=== PATIENT | male | born 1995 | race Caucasian/White ===

== ENCOUNTER 2017-01-28 17:58 | Emergency (ER) | payer MEDICAID, OTHER ==
[2017-01-28 18:14] VITALS: BP 117/50; PULSE 63; RESP 20; TEMP 98.3; O2SAT 100
[2017-01-28] MEDS ORDERED: Lidocaine 5% Patch TD STA (18:34)
[2017-01-28] MEDS ORDERED: Lidocaine 5% Patch TD ONE (18:43)
--- NOTE | 2017-01-28 18:57 | C.PDOC ---
History Of Present Illness 21 year old male presents to the ED with complaints of intermittent dull achy left lower back pain for four months. Patient states pain began when heavy lifting at work but has since moved to a different position but pain is still intermittent. He has taken Tylenol and Advil with transient relief. Patient denies fever, urinary symptoms, urinary incontinence, numbness, or weakness. Time Seen by Provider: 01/28/17 18:22 Chief Complaint (Nursing): Back Pain History Per: Patient History/Exam Limitations: no limitations Onset/Duration Of Symptoms: Persistent (four months ) Current Symptoms Are (Timing): Still Present Quality Of Discomfort: "Pain" Previous Symptoms: None Associated Symptoms: None Recent travel outside of the [place]: No Past Medical History Reviewed: Historical Data, Nursing Documentation, Vital Signs Vital Signs: Last Vital Signs Temp 98.3 F 01/28/17 18:11 Pulse 63 01/28/17 18:11 Resp 20 01/28/17 18:11 BP 117/50 L 01/28/17 18:11 Pulse Ox 100 01/28/17 21:17 Family History: States: Unknown Family Hx - Social History Hx Tobacco Use: No Hx Alcohol Use: No Hx Substance Use: No - Immunization History Hx Tetanus Toxoid Vaccination: Yes Hx Influenza Vaccination: Yes Hx Pneumococcal Vaccination: No Review Of Systems Constitutional: Negative for: Fever, Chills Cardiovascular: Negative for: Chest Pain Respiratory: Negative for: Shortness of Breath Gastrointestinal: Negative for: Nausea, Vomiting Musculoskeletal: Positive for: Back Pain Neurological: Negative for: Weakness, Numbness Physical Exam - Physical Exam Appears: Non-toxic, No Acute Distress Skin: Warm, Dry Head: Atraumatic, Normacephalic Eye(s): bilateral: Normal Inspection, PERRL, EOMI Oral Mucosa: Moist Neck: Supple Chest: Symmetrical, No Deformity Cardiovascular: Rhythm Regular Respiratory: Normal Breath Sounds, No Rales, No Rhonchi, No Wheezing Back: Muscle Spasm (left lumbosacral muscle spasms), Other (left lumbosacral tenderness ) Extremity: Normal ROM, No Tenderness, Capillary Refill (good capillary refill, less than two seconds. ) Gait: Steady ED Course And Treatment O2 Sat by Pulse Oximetry: 100 (room air ) Progress Note: Patient was given Motrin, Flexeril, and Lidoderm patch Reassessment Condition: Improved (Patient resting comfortably, no longer having back pain, no fever, no bony tenderness, no numbness, no weakness, no abdominal pain. Patient is ambulatory in the emergency department with no discomfort. Patient advised to follow up with their physician in 1-2 days.) Disposition Counseled Patient/Family Regarding: Diagnosis, Need For Followup, Rx Given - Disposition Referrals: Sangita Marroquin MD [Medical Doctor] - Disposition: HOME/ ROUTINE Disposition Time: 18:56 Condition: STABLE Additional Instructions: Follow up with your primary medical doctor or clinic in 2-5 days for further evaluation. Take medications as prescribed. Return to the emergency department at any time if symptoms persist or worsen. Prescriptions: Cyclobenzaprine [Cyclobenzaprine HCl] 10 mg PO TID #21 tab Ibuprofen [Motrin] 600 mg PO Q8 #30 tab Lidocaine 5% [Lidoderm] 1 ea TD Q12 #10 patch Instructions: Muscle Spasm (ED) Forms: [facility] ([place]) - POA Present On Arrival: None - Clinical Impression Clinical Impression: Low back pain, Muscle spasm - Scribe Statement The provider has reviewed the documentation as recorded by the Scribcharlie Doherty All medical record entries made by the Weiibcharlie were at my direction and personally dictated by me. I have reviewed the chart and agree that the record accurately reflects my personal performance of the history, physical exam, medical decision making, and the department course for this patient. I have also personally directed, reviewed, and agree with the discharge instructions and disposition.
== END 2017-01-28 19:25 | disposition home or self-care (01) ==
LOC: C.ER 17:58
DX: M54.5 Low back pain (principal); M62.830 Muscle spasm of back